=== PATIENT | female | born 1975 | race Caucasian/White ===

== ENCOUNTER → 2018-12-27 | Outpatient (CLI) | payer OTHER ==
[2018-12-27 10:42] VITALS: BP 106/72; PULSE 76; RESP 18; TEMP 97.9; BMI 46.6
--- NOTE | 2018-12-27 11:41 | P.HPOB ---
History of Present Illness H&P Date: 12/27/18 Chief Complaint: The patient is here for her routine gynecologic exam and ma mmogram. This is a 43-year-old with an LMP of 12/19/2018. The patient is here to establish with this office. She is status post tubal ligation. She thinks her last pelvic exam may have been 11 years ago. She is without gynecologic complaints and states her menses are regular every month. Review of Systems She has lost about 17 pounds since she moved into [facility]. She has done this with healthier eating. Respiratory: she does get short of breath with exertion with a history of asthma . She denies cardiac or G.I. problems. Past Medical History Past Medical History: Asthma, Diabetes Mellitus, Hyperlipidemia Additional Past Medical History / Comment(s): Enlarged heart. Borderline diabetes. Chronic back and knee problems. 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 History of Any Multi-Drug Resistant Organisms: None Reported Past Surgical History: Bladder Surgery, Hernia Repair, Tubal Ligation Additional Past Surgical History / Comment(s): Abdominal hernia repair as an . Bladder surgery for incontinence in 2018. Past Psychological History: Bipolar, Depression Additional Psychological History / Comment(s): History of cognitive impairment. Smoking Status: Former smoker Additional Past Alcohol Use History / Comment(s): Quit smoking July 2018. Past Drug Use History: None Reported Additional History: She is single. She is not seeing anybody at this time and has not been sexually active for several years. 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 She lives at [facility]. - Past Family History Father Family Medical History: Asthma, Seizure Disorder Mother Family Medical History: Unable to Obtain Aunt Family Medical History: Cancer Additional Family Medical History / Comment(s): Brain cancer. Medications and Allergies Home Medications Medication Instructions Recorded Confirmed Type Albuterol Inhaler [Ventolin Hfa 1 - 2 puff INHALATION RT-Q6H PRN 12/27/18 12/27/18 History Inhaler] Atenolol 25 mg PO HS 12/27/18 12/27/18 History Cholecalciferol [Vitamin D3 (25 1,000 unit PO DAILY 12/27/18 12/27/18 History Mcg = 1000 Iu)] Citalopram Hydrobromide [CeleXA] 40 mg PO HS 12/27/18 12/27/18 History HYDROcodone/APAP 5-325MG [[place] 2 tab PO Q6HR PRN 12/27/18 12/27/18 History 5-325] Meloxicam 15 mg PO DAILY 12/27/18 12/27/18 History Montelukast [Singulair] 10 mg PO HS 12/27/18 12/27/18 History Pravastatin Sodium [Pravachol] 20 mg PO HS 12/27/18 12/27/18 History Trospium Chloride [Sanctura XR] 60 mg PO DAILY 12/27/18 12/27/18 History Ziprasidone [Geodon] 80 mg PO BID 12/27/18 12/27/18 History Allergies Allergy/AdvReac Type Severity Reaction Status Date / Time No Known Allergies Allergy Unverified 12/27/18 10:42 Exam Vital Signs Temp Pulse Resp BP Pulse Ox 12/27/18 10:33 97.9 F 76 18 106/72 96 Intake and Output 12/26/18 12/27/18 12/27/18 22:59 06:59 14:59 Other: Weight 115.666 kg Height 5'2", weight 255 pounds, BMI 46.6. This is a well-developed well-nourished obese white female who is alert and oriented times 3 in no acute distress. The patient is cognitively slow, but is able to answer questions appropriately and seems to be a good historian. HEENT: Within normal limits. NECK: Supple without mass or thyromegaly. CHEST AND LUNGS: Clear to auscultation. HEART: Regular rate and rhythm. BREASTS: Are without mass or discharge. AXILLARY EXAM: Negative for adenopathy. BACK: Negative for CVA tenderness. ABDOMEN: Soft, obese, nontender, without palpable masses. PELVIC EXAM: Normal external genitalia. Cervix and vagina appear normal. There is no unusual discharge. There is no evidence of prolapse. The uterus is midposition, nongravid size and nontender. There are no palpable adnexal masses or tenderness. Bimanual examination is somewhat limited secondary to her size. RECTAL EXAM: negative for mass or tenderness and is negative for occult blood. EXTREMITIES: Nontender. IMPRESSION: 1. 43-year-old female with normal gynecologic exam. 2. Status post tubal ligation. PLAN: 1. Pap smear was performed. 2. Self breast awareness was discussed with the patient. 3. Screening mammogram will be done today. 4. Osteoporosis prevention was discussed. I have stressed the importance of adequate calcium, vitamin D and regular exercise. Recommended amounts of calcium and vitamin D were also discussed. 5. She was advised to return in one year for her annual well woman exam.
--- NOTE | 2018-12-28 15:01 | MM ---
Reason for exam: screening (asymptomatic). Last mammogram was performed 6 years and 4 months ago. MG 3D Screening Mammo W/Cad Bilateral CC and MLO view(s) were taken. Prior study comparison: August 12, 2012, bilateral digital screening mammo w/CAD. There are scattered fibroglandular densities. There is a 3 mm mass in the upper outer quadrant of the right breast 9.5-10 cm from the nipple. No suspicious left breast abnormality. ASSESSMENT: Incomplete: need additional imaging evaluation, BI-RAD 0 RECOMMENDATION: Special view mammogram of the right breast. [facility] will attempt to contact patient to return for supplemental views .
== END | disposition home or self-care (01) ==
LOC: WWCWWP 10:12
PROVIDERS: ATTEND Obstetrics & Gynecology
DX: Z12.31 Encounter for screening mammogram for malignant neoplasm of breast (principal)
CPT/HCPCS: 77063; 77067

== ENCOUNTER → 2019-02-06 | Outpatient (CLI) | payer OTHER ==
--- NOTE | 2019-02-06 14:48 | MM ---
Reason for exam: additional evaluation requested from abnormal screening. Last mammogram was performed 1 month ago. History: Took hormonal contraceptives beginning at age 16. Physical Findings: Nurse did not find any significant physical abnormalities on exam. MG 3D Work Up W/Cad RT Spot compression CC, spot compression MLO, and LM view(s) were taken of the right breast. Prior study comparison: December 27, 2018, bilateral MG 3d screening mammo w/cad. August 12, 2012, bilateral digital screening mammo w/CAD. No distinct lesion persits at area of concern on 12/27/18 mammogram. These results were verbally communicated with the patient and result sheet given to the patient on 02/06/19. ASSESSMENT: Negative, BI-RAD 1 RECOMMENDATION: Return to routine screening mammogram schedule for both breasts.
== END | disposition home or self-care (01) ==
LOC: RADMAMWWP 13:37
PROVIDERS: ATTEND Obstetrics & Gynecology
DX: R92.8 Other abnormal and inconclusive findings on diagnostic imaging of breast (principal)
CPT/HCPCS: 77065; G0279; 77061

== ENCOUNTER → 2019-12-13 | Day surgery (SDC) | payer MEDICARE, OTHER ==
[2019-12-12 09:30] VITALS: BMI 47.5
[~2019-12-13] MED LIST: ACETAMINOPHEN TAB 500 MG TAB ONE; ACETAMINOPHEN TAB 500 MG TAB PO ONE; BUPIVACAIN-EPI 0.25%-1:200,000 30 ML VIAL SQ ONE; DEXAMETHASONE SOD PHOSPHATE 10 MG/ML 1 ML VIAL IV ONE; GLYCOPYRROLATE 0.2 MG/ML 2 ML VIAL ONE; HEPARIN SODIUM,PORCINE 5,000 UNIT/ML 1 ML VIAL ONE; HEPARIN SODIUM,PORCINE 5,000 UNIT/ML 1 ML VIAL SQ ONE; HYDROcodone/APAP 5-325MG 1 EACH TAB ONE; HYDROcodone/APAP 5-325MG 1 EACH TAB PO ONE; KETAMINE 10 MG/ML 20 ML VIAL ONE; KETOROLAC 30 MG/ML 1 ML VIAL ONE; LACTATED RINGERS 1,000 ML IV SCH; LIDOCAINE 1% (10MG/ML) FOR IV START INTRADERMA PRN; LIDOCAINE 1% INJ 10MG/ML (20 ML MDV) ONE; MIDAZOLAM 2 MG/2 ML VIAL IV PRN; MIDAZOLAM 2 MG/2 ML VIAL ONE; NEOSTIGMINE 1 MG/ML 10 ML VIAL ONE; ONDANSETRON 4 MG/2 ML VIAL IVP ONE; ONDANSETRON 4 MG/2 ML VIAL ONE; PROPOFOL 10 MG/ML 20 ML VIAL IV ONE; ROCURONIUM 10 MG/ML (5 ML VIAL) IV ONE; SUCCINYLCHOLINE CHLORIDE 100 MG/5 ML SYR IV ONE; fentaNYL (PF) 50 MCG/ML 2 ML AMP IVP PRN; fentaNYL (PF) 50 MCG/ML 2 ML AMP ONE
[2019-12-13 08:28] VITALS: TEMP 97.5
[2019-12-13 08:33] LABS: Glucose,Whole Blood 96 mg/dL (75-99)
[2019-12-13 08:38] LABS: Basophils % (A) 0 %; Eosinophils # (A) 0.4 k/uL (0-0.7); Eosinophils % (A) 4 %; HCT 41.2 % (34.0-46.0); HGB 13.5 gm/dL (11.4-16.0); Lymphocytes # (A) 2.3 k/uL (1.0-4.8); Lymphocytes % (A) 22 %; MCH 29.8 pg (25.0-35.0); MCHC 32.8 g/dL (31.0-37.0); MCV 90.9 fL (80.0-100.0); Mean Platelet Volume 7.7; Monocytes # (A) 0.6 k/uL (0-1.0); Monocytes % (A) 5 %; Neutrophils % (A) 67 %; Platelet Count 372 k/uL (150-450); RBC 4.53 m/uL (3.80-5.40); RDW 13.8 % (11.5-15.5); WBC 10.5 k/uL (3.8-10.6)
--- NOTE | 2019-12-13 09:04 | P.GSHP ---
History of Present Illness H&P Date: 12/13/19 Chief Complaint: Incarcerated umbilical hernia This a 44-year-old female with complaints of umbilical pain. Patient seen Rachel of incarcerated we'll hernia. She presents today for laparoscopic robotic- assisted repair. Past Medical History Past Medical History: Asthma, Hyperlipidemia, Hypertension Additional Past Medical History / Comment(s): umbilical hernia,Enlarged heart. Borderline diabetes-. Chronic back and knee problems. History of Any Multi-Drug Resistant Organisms: None Reported Past Surgical History: Bladder Surgery, Hernia Repair, Tubal Ligation Additional Past Surgical History / Comment(s): Abdominal hernia repair as an . Bladder surgery for incontinence in 2018. Past Anesthesia/Blood Transfusion Reactions: No Reported Reaction Additional Past Anesthesia/Blood Transfusion Reaction / Comment(s): unable to confirm family hx w/ Marni caregiver at residential and unknown blood transfusion hx Smoking Status: Former smoker - Past Family History Father Family Medical History: Asthma, Seizure Disorder Additional Family Medical History / Comment(s): unable to confirm family hx w/ Marni caregiver at residential Mother Family Medical History: Unable to Obtain Additional Family Medical History / Comment(s): unable to confirm family hx w/ Marni caregiver at residential Aunt Family Medical History: Cancer Additional Family Medical History / Comment(s): Brain cancer. unable to confirm family hx w/ Marni caregiver at residential Medications and Allergies Home Medications Medication Instructions Recorded Confirmed Type Albuterol Inhaler (Mhu) [Ventolin 1 - 2 puff INHALATION RT-Q6H PRN 12/27/18 12/13/19 History Hfa Inhaler] Atenolol 25 mg PO HS 12/27/18 12/13/19 History Cholecalciferol [Vitamin D3 (25 1,000 unit PO DAILY 12/27/18 12/13/19 History Mcg = 1000 Iu)] Citalopram Hydrobromide [CeleXA] 40 mg PO HS 12/27/18 12/13/19 History HYDROcodone/APAP 5-325MG [[place] 2 tab PO Q6HR PRN 12/27/18 12/13/19 History 5-325] Meloxicam 15 mg PO DAILY 12/27/18 12/13/19 History Montelukast [Singulair] 10 mg PO HS 12/27/18 12/13/19 History Pravastatin Sodium [Pravachol] 20 mg PO HS 12/27/18 12/13/19 History Trospium Chloride [Sanctura XR] 60 mg PO BID 12/27/18 12/13/19 History Ziprasidone [Geodon] 80 mg PO BID 12/27/18 12/13/19 History Docusate Sodium [Dok] 100 mg PO BID 12/12/19 12/13/19 History Lisinopril [Prinivil] 5 mg PO QAM 12/12/19 12/13/19 History Allergies Allergy/AdvReac Type Severity Reaction Status Date / Time No Known Allergies Allergy Verified 12/13/19 08:11 Surgical - Exam Vital Signs Temp Pulse Resp BP Pulse Ox 97.5 F L 68 16 126/77 96 12/13/19 08:26 12/13/19 08:26 12/13/19 08:26 12/13/19 08:26 12/13/19 08:26 - General well developed, well nourished, no distress - Eyes PERRL - ENT normal pinna - Neck no masses - Respiratory normal expansion - Cardiovascular Rhythm: regular - Abdomen Abdomen: soft, non tender Hernia: umbilical (3 cm incarcerated umbilical hernia) Results - Labs 12/13/19 08:30 Assessment and Plan Assessment: Impression hernia. We'll perform laparoscopic robotic-assisted repair.
[2019-12-13] MEDS: HYDROmorphone 0.5 MG/0.5 ML SYRINGE IVP PRN ×2 (10:32→10:38)
--- NOTE | 2019-12-13 10:34 | P.OP ---
Date of Procedure: 12/13/19 Preoperative Diagnosis: Incarcerated umbilical hernia Postoperative Diagnosis: Incarcerated umbilical hernia Procedure(s) Performed: Laparoscopic robotic-assisted repair of incarcerated umbilical hernia Partial omentectomy Anesthesia: TAMERA Surgeon: Byron Grimm Estimated Blood Loss (ml): 5 Pathology: other (Omentum) Condition: stable Disposition: PACU Description of Procedure: The patient was placed on the operating table in the supine position. He received general anesthesia. His abdomen was prepped and draped usual fashion. Using a 5 mm optical trocar under direct visualization the peritoneal cavity was entered in the left upper quadrant. The abdomen was then insufflated. The laparoscope was placed back into the perineal cavity. Next a 8 mm robotic trocar was placed in the left lower quadrant and a 12 mm robotic trocar was placed in the left lateral position. The original 5 mm trocar was exchanged for a 8 mm robotic trocar. The patient's placed in the left side up position. And the patient was undocked the robot. The umbilical hernia was visualized. Using hook cautery the peritoneum over the umbilical hernia was excised. Incarcerated omentum was then dissected free and transected with the hook cautery. The specimens of pathology. The fascial opening was repaired using 0V LOC suture. Next a piece of 11 cm round ventral light ST mesh was placed into the. Cavity and secured with 2 OV lock suture. The patient was undocked the robot. The needles were retrieved. The fascia of the 12 mm trocar site was closed with 0 Ethibond suture. Skin was closed interrupted 3-0 Monocryl suture. Dermabond dressings was applied. Patient top procedure well and was sent to recovery room stable condition.
[2019-12-13 13:36] VITALS: BP 153/72; PULSE 82; RESP 18
== END ==
LOC: OR 07:37
PROVIDERS: ATTEND Surgery
DX: K42.0 Umbilical hernia with obstruction, without gangrene (principal); I10 Essential (primary) hypertension; E78.5 Hyperlipidemia, unspecified; J45.909 Unspecified asthma, uncomplicated; E11.9 Type 2 diabetes mellitus without complications; E66.01 Morbid (severe) obesity due to excess calories; Z98.890 Other specified postprocedural states; Z79.899 Other long term (current) drug therapy; Z98.51 Tubal ligation status; Z87.891 Personal history of nicotine dependence; Z82.0 Family history of epilepsy and other diseases of the nervous system; Z82.5 Family history of asthma and other chronic lower respiratory diseases; Z80.8 Family history of malignant neoplasm of other organs or systems; Z68.42 Body mass index [BMI] 45.0-49.9, adult
CPT/HCPCS: 81025; 88305; 85025; 49653; C1781; J2250; J1644; J1100; J2710; J2405; J2001; J3010; J1885; J0330; J2704; J1170

== ENCOUNTER → 2019-12-29 | Outpatient (CLI) | payer MEDICARE, OTHER ==
--- NOTE | 2020-01-01 10:32 | MM ---
Reason for exam: screening (asymptomatic). Last mammogram was performed 11 months ago. History: Took hormonal contraceptives beginning at age 16. Physical Findings: A clinical breast exam by your physician is recommended on an annual basis and results should be correlated with mammographic findings. MG Screening Mammo w CAD Bilateral CC and MLO view(s) were taken. Prior study comparison: February 06, 2019, right breast MG 3d work up w/cad RT. December 27, 2018, bilateral MG 3d screening mammo w/cad. There are scattered fibroglandular densities. There is no discrete abnormality. No significant changes when compared with prior studies. ASSESSMENT: Negative, BI-RAD 1 RECOMMENDATION: Routine screening mammogram of both breasts in 1 year.
== END | disposition home or self-care (01) ==
LOC: RADMAMWWP 12:59
PROVIDERS: ATTEND General Practice
DX: Z12.31 Encounter for screening mammogram for malignant neoplasm of breast (principal)
CPT/HCPCS: 77067

== ENCOUNTER → 2020-01-02 | Outpatient (CLI) | payer MEDICARE, OTHER ==
[2020-01-02 11:36] VITALS: BP 121/88; PULSE 69; RESP 18; TEMP 97.8
--- NOTE | 2020-01-02 12:26 | P.HPOB ---
History of Present Illness H&P Date: 01/02/20 Chief Complaint: The patient is here for her routine gynecologic exam. This is a 44-year-old 012 with an LMP of 01/02/2020. The patient is status post tubal ligation. She states her menstrual periods no longer start on the first of the month like they use to, but are about every 4-5 weeks. She states they're typically lasting 5 days. She states she has not been sexually active. She was wondering if she should take control pills to make the menstrual periods more regular. She is otherwise without complaints. Review of Systems The patient has lost 11 pounds over the last year. She denies respiratory, cardiac, or G.I. problems. Past Medical History Past Medical History: Asthma, Hyperlipidemia, Hypertension Additional Past Medical History / Comment(s): Enlarged heart. Borderline diabetes-. Chronic back and knee problems. 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 History of Any Multi-Drug Resistant Organisms: None Reported Past Surgical History: Bladder Surgery, Hernia Repair, Tubal Ligation Additional Past Surgical History / Comment(s): Abdominal hernia repair as an in and in 2019. Bladder surgery for incontinence in 2017. Past Anesthesia/Blood Transfusion Reactions: No Reported Reaction Additional Past Anesthesia/Blood Transfusion Reaction / Comment(s): unable to confirm family hx w/ Marni caregiver at [facility] and unknown blood transfusion hx Past Psychological History: Bipolar, Depression Additional Psychological History / Comment(s): History of cognitive impairment- pt is own guardian. Smoking Status: Former smoker Past Alcohol Use History: None Reported Additional Past Alcohol Use History / Comment(s): Quit smoking July 2018. Past Drug Use History: None Reported Additional History: She is single. She is not seeing anybody at this time and has not been sexually active for several years. She lives at [facility] and works at [employer]. - Past Family History Father Family Medical History: Asthma, Seizure Disorder Additional Family Medical History / Comment(s): unable to confirm family hx w/ Marni caregiver at [facility] Mother Family Medical History: Unable to Obtain Additional Family Medical History / Comment(s): unable to confirm family hx w/ Marni caregiver at [facility] Aunt Family Medical History: Cancer Additional Family Medical History / Comment(s): Brain cancer. unable to confirm family hx w/ Marni caregiver at [facility] Medications and Allergies Home Medications Medication Instructions Recorded Confirmed Type Albuterol Inhaler (Mhu) [Ventolin 1 - 2 puff INHALATION RT-Q6H PRN 12/27/18 01/02/20 History Hfa Inhaler] Cholecalciferol [Vitamin D3 (25 1,000 unit PO DAILY 12/27/18 01/02/20 History Mcg = 1000 Iu)] Citalopram Hydrobromide [CeleXA] 40 mg PO HS 12/27/18 01/02/20 History HYDROcodone/APAP 5-325MG [[place] 2 tab PO Q6HR PRN 12/27/18 01/02/20 History 5-325] Meloxicam 15 mg PO DAILY 12/27/18 01/02/20 History Montelukast [Singulair] 10 mg PO HS 12/27/18 01/02/20 History Pravastatin Sodium [Pravachol] 20 mg PO HS 12/27/18 01/02/20 History Trospium Chloride [Sanctura XR] 20 mg PO BID 12/27/18 01/02/20 History Ziprasidone [Geodon] 80 mg PO BID 12/27/18 01/02/20 History atenoloL [Atenolol] 25 mg PO HS 12/27/18 01/02/20 History Docusate Sodium [Dok] 100 mg PO BID 12/12/19 01/02/20 History lisinopriL [Prinivil] 5 mg PO QAM 12/12/19 01/02/20 History Allergies Allergy/AdvReac Type Severity Reaction Status Date / Time No Known Allergies Allergy Verified 01/02/20 11:29 Exam Vital Signs Temp Pulse Resp BP Pulse Ox 01/02/20 11:29 97.8 F 69 18 121/88 100 Intake and Output 01/01/20 01/02/20 01/02/20 22:59 06:59 14:59 Other: Weight 110.677 kg Height 5 feet 1 inch, weight 244 pounds, BMI 46.1. This is a well-developed well-nourished heavyset white female who is alert and oriented times 3 in no acute distress. The patient is somewhat slow with her responses but seems to answer questions appropriately and seems to be a good historian. HEENT: Within normal limits. NECK: Supple without mass or thyromegaly. CHEST AND LUNGS: Clear to auscultation. HEART: Regular rate and rhythm. BREASTS: Are without mass or discharge. AXILLARY EXAM: Negative for adenopathy. BACK: Negative for CVA tenderness. ABDOMEN: Soft, nontender, without palpable masses. PELVIC EXAM: Normal external genitalia. Cervix and vagina appear normal. There is no unusual discharge. There is no evidence of prolapse. The uterus is midposition, nongravid size and nontender. There are no palpable adnexal masses or tenderness. RECTAL EXAM: negative for mass or tenderness and is negative for occult blood. EXTREMITIES: Nontender. IMPRESSION: 1. 44-year-old premenopausal female with normal gynecologic exam who is status post tubal ligation. 2. History of cognitive impairment. 3. Mild menstrual changes with menses every 4-5 weeks. PLAN: 1. Pap smear was deferred since she had a normal one on 12/27/2018. 2. Self breast awareness was discussed with the patient. 3. Screening mammogram was done on 12/29/2019 and was benign. 4. The patient will keep a menstrual calendar. I have tried to reassure her that her menstrual periods not starting at the same time each month can be normal. Her menstrual periods being every 4-5 weeks is within the normal range. She was instructed to make an appointment if she is having worsening menstrual irregularity or problems. I do not believe she is a good candidate for control pills and she is not in need of control at this time. 5. She was advised to return in one year for her annual well woman exam.
== END | disposition home or self-care (01) ==
LOC: WWCWWP 11:04
PROVIDERS: ATTEND Obstetrics & Gynecology
DX: Z53.9 Procedure and treatment not carried out, unspecified reason (principal)

== ENCOUNTER → 2020-04-15 | Outpatient (CLI) | payer MEDICARE, OTHER | END | disposition home or self-care (01) | LOC: LABWHC1 11:25 | PROVIDERS: ATTEND General Practice | DX: Z20.828 Contact with and (suspected) exposure to other viral communicable diseases (principal); R05 Cough | CPT/HCPCS: U0003; C9803 ==

== ENCOUNTER 2021-02-01 17:22 | Emergency (ER) | payer MEDICARE, OTHER ==
--- NOTE | 2021-02-01 17:53 | ED ---
General Adult HPI - General Chief complaint: Extremity Injury, Lower Stated complaint: L Foot Pain Time Seen by Provider: 02/01/21 17:28 Source: patient, EMS, RN notes reviewed, old records reviewed Mode of arrival: EMS Limitations: no limitations - History of Present Illness Initial comments: 45-year-old female presents with left foot and ankle injury. Patient had either had her foot stepped on or had tripped resulting in some foot and ankle pain on the left. There is no head neck or back trauma. No loss conscious. No other extremity injury. This occurred while the patient was at home when she was transported by EMS. EMS reported that the patient's father had accidentally stepped on her foot - Related Data Home Medications Medication Instructions Recorded Confirmed Albuterol Inhaler (Mhu) [Ventolin 1 - 2 puff INHALATION RT-Q6H PRN 12/27/18 01/02/20 Hfa Inhaler] Cholecalciferol [Vitamin D3 (25 1,000 unit PO DAILY 12/27/18 01/02/20 Mcg = 1000 Iu)] Citalopram Hydrobromide [CeleXA] 40 mg PO HS 12/27/18 01/02/20 HYDROcodone/APAP 5-325MG [[place] 2 tab PO Q6HR PRN 12/27/18 01/02/20 5-325] Meloxicam 15 mg PO DAILY 12/27/18 01/02/20 Montelukast [Singulair] 10 mg PO HS 12/27/18 01/02/20 Pravastatin Sodium [Pravachol] 20 mg PO HS 12/27/18 01/02/20 Trospium Chloride [Sanctura XR] 20 mg PO BID 12/27/18 01/02/20 Ziprasidone [Geodon] 80 mg PO BID 12/27/18 01/02/20 atenoloL 25 mg PO HS 12/27/18 01/02/20 Docusate Sodium [Dok] 100 mg PO BID 12/12/19 01/02/20 lisinopriL [Prinivil] 5 mg PO QAM 12/12/19 01/02/20 Allergies Allergy/AdvReac Type Severity Reaction Status Date / Time No Known Allergies Allergy Verified 01/02/20 11:29 Review of Systems ROS Statement: Those systems with pertinent positive or pertinent negative responses have been documented in the HPI. ROS Other: All systems not noted in ROS Statement are negative. Past Medical History Past Medical History: Asthma, Hyperlipidemia, Hypertension Additional Past Medical History / Comment(s): Enlarged heart. Borderline diabetes-. Chronic back and knee problems. 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 History of Any Multi-Drug Resistant Organisms: None Reported Past Surgical History: Bladder Surgery, Hernia Repair, Tubal Ligation Additional Past Surgical History / Comment(s): Abdominal hernia repair as an and in 2020. Bladder surgery for incontinence in 2018. Past Anesthesia/Blood Transfusion Reactions: No Reported Reaction Additional Past Anesthesia/Blood Transfusion Reaction / Comment(s): unable to confirm family hx w/ M[facility]i caregiver at [facility] and unknown blood transfusion hx Past Psychological History: Bipolar, Depression Smoking Status: Former smoker Past Alcohol Use History: None Reported Past Drug Use History: None Reported - Past Family History Father Family Medical History: Asthma, Seizure Disorder Additional Family Medical History / Comment(s): unable to confirm family hx w/ Marni caregiver at [facility] Mother Family Medical History: Unable to Obtain Additional Family Medical History / Comment(s): unable to confirm family hx w/ Marni caregiver at [facility] Aunt Family Medical History: Cancer Additional Family Medical History / Comment(s): Brain cancer. unable to confirm family hx w/ Marni caregiver at [facility] General Exam Limitations: no limitations General appearance: alert, in no apparent distress Head exam: Present: atraumatic, normocephalic Eye exam: Present: normal appearance, PERRL ENT exam: Present: normal exam Neck exam: Present: normal inspection. Absent: tenderness, meningismus Respiratory exam: Present: normal lung sounds bilaterally. Absent: respiratory distress, wheezes Cardiovascular Exam: Present: regular rate, normal rhythm GI/Abdominal exam: Present: soft. Absent: distended, tenderness, guarding Extremities exam: Present: normal inspection, tenderness (Tenderness on the dorsum of the left foot, no soft tissue swelling, no ecchymosis, no deformity.), normal capillary refill. Absent: pedal edema, joint swelling Neurological exam: Present: alert Psychiatric exam: Present: normal affect, normal mood Skin exam: Present: warm, dry, intact Course Vital Signs 02/01/21 17:31 Temperature 97.8 F Pulse Rate 85 Respiratory 20 Rate Blood Pressure 146/63 O2 Sat by Pulse 98 Oximetry Procedures - Orthopedic Splinting/Casting Injury #1 Side: left Lower Extremity Injury Location: short leg, foot Lower Extremity Immobilizer: posterior splint, synthetic pre-padded splint Other Orthopedic Equipment: crutches Medical Decision Making - Medical Decision Making 45-year-old female with left foot injury. X-ray showing a nondisplaced midshaft fracture of the fifth metacarpal. Patient placed in posterior splint, she is instructed to be nonweightbearing. She is given a prescription for crutches. She will follow-up with orthopedics. Disposition Clinical Impression: Fracture, metacarpal shaft Disposition: HOME SELF-CARE Instructions (If sedation given, give patient instructions): Foot Fracture in Adults (ED) Is patient prescribed a controlled substance at d/c from ED?: No Referrals: Casey Elizabeth MD [Primary Care Provider] - 1-2 days Elton Fitzpatrick MD [Medical Doctor] - 1-2 days Time of Disposition: 18:50
--- NOTE | 2021-02-01 18:11 | XR ---
EXAMINATION TYPE: XR ankle complete LT DATE OF EXAM: 02/01/2021 COMPARISON: NONE HISTORY: Fall TECHNIQUE: 3 views FINDINGS: There is plantar calcaneal spurring. I see no fracture nor dislocation. Ankle mortise is an atomic. Ankle joint space is normal. There is some calcification lateral to the Hindfoot consistent with old ligamentous injury. IMPRESSION: Calcaneal spurring. No fracture seen. Minimal soft tissue swelling around the ankle. Late ral soft tissue calcification consistent with old injury.
--- NOTE | 2021-02-01 18:13 | XR ---
EXAMINATION TYPE: XR foot complete LT DATE OF EXAM: 02/01/2021 COMPARISON: NONE HISTORY: Foot pain TECHNIQUE: 3 views FINDINGS: Metatarsals show nondisplaced fracture across the mid shaft of the fifth metatarsal. The to es appear intact. There is plantar calcaneal spurring. There is soft tissue swelling of the forefoot. There is some oval-shaped calcification lateral to the calcaneus consistent with old ligamentous inj ury. IMPRESSION: Acute nondisplaced fracture of the mid shaft of the fifth metatarsal. Soft tissue swellin g and old injury. Calcaneal spurring.
[2021-02-01 19:18] VITALS: BP 138/84; PULSE 82; RESP 16; TEMP 98.1
== END 2021-02-01 19:16 | disposition home or self-care (01) ==
LOC: EC 17:22
DX: S92.355A Nondisplaced fracture of fifth metatarsal bone, left foot, initial encounter for closed fracture (principal); E78.5 Hyperlipidemia, unspecified; I10 Essential (primary) hypertension; J45.909 Unspecified asthma, uncomplicated; Z87.891 Personal history of nicotine dependence; Z79.899 Other long term (current) drug therapy; W18.40XA Slipping, tripping and stumbling without falling, unspecified, initial encounter; Y92.009 Unspecified place in unspecified non-institutional (private) residence as the place of occurrence of the external cause
CPT/HCPCS: 29515; 99283

== ENCOUNTER → 2021-05-20 | Outpatient (CLI) | payer MEDICARE, OTHER ==
--- NOTE | 2021-05-20 14:12 | CT ---
EXAMINATION TYPE: CT foot LT wo con DATE OF EXAM: 05/20/2021 COMPARISON: Left foot and ankle x-rays February 01, 2021 HISTORY: Displaced fracture of fifth metatarsal, pain, morbid obesity. CT DLP: 175.1 mGycm Automated exposure control for dose reduction was used. FINDINGS: Osseous structures are demineralized. 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 No ossific fusion is present. No new acute or subacute fractures. Some ossification along the peroneal tendons inferior to the lateral malleolus sagittal image 8 are n oted. Similar smaller type ossifications along the deep anterior aspect of the posterior tibial tendo n at level of the anterior talus axial image 30. No significant soft tissue swelling. Suspect small deep subcutaneous lipoma medial aspect calcaneocub oid articulation axial image 40 measuring 3.1 x 1.4 cm. IMPRESSION: As above.
== END | disposition home or self-care (01) ==
LOC: RADCTMAIN 13:35
PROVIDERS: ATTEND Orthopaedic Surgery
DX: M25.572 Pain in left ankle and joints of left foot (principal)

== ENCOUNTER 2021-07-04 13:11 | Observation (INO) | payer MEDICARE, OTHER ==
[2021-07-04] MEDS ORDERED: ONDANSETRON 4 MG/2 ML VIAL IVP STA (13:26)
[2021-07-04] MEDS ORDERED: FAMOTIDINE 20 MG/2 ML VIAL IV STA (13:26)
[2021-07-04] MEDS ORDERED: SODIUM CHLORIDE 0.9% 500 ML 500 ML IV STA (13:26)
--- NOTE | 2021-07-04 13:36 | ED ---
General Adult HPI - General Chief complaint: Nausea/Vomiting/Diarrhea Stated complaint: Nausea Time Seen by Provider: 07/04/21 13:13 Source: patient, EMS, RN notes reviewed Mode of arrival: EMS Limitations: no limitations - History of Present Illness Initial comments: Patient is a pleasant 46-year-old female presenting to emergency Department with complaints of nausea. Patient states she did vomit 3 times. Patient has continued nausea. Patient states this is not a chronic problem. Patient states there is some discomfort of the abdomen. No diarrhea. No fevers. - Related Data Home Medications Medication Instructions Recorded Confirmed Albuterol Inhaler (Mhu) [Ventolin 1 - 2 puff INHALATION RT-Q6H PRN 12/27/18 01/02/20 Hfa Inhaler] Cholecalciferol [Vitamin D3 (25 1,000 unit PO DAILY 12/27/18 01/02/20 Mcg = 1000 Iu)] Citalopram Hydrobromide [CeleXA] 40 mg PO HS 12/27/18 01/02/20 HYDROcodone/APAP 5-325MG [[place] 2 tab PO Q6HR PRN 12/27/18 01/02/20 5-325] Meloxicam 15 mg PO DAILY 12/27/18 01/02/20 Montelukast [Singulair] 10 mg PO HS 12/27/18 01/02/20 Pravastatin Sodium [Pravachol] 20 mg PO HS 12/27/18 01/02/20 Trospium Chloride [Sanctura XR] 20 mg PO BID 12/27/18 01/02/20 Ziprasidone [Geodon] 80 mg PO BID 12/27/18 01/02/20 atenoloL 25 mg PO HS 12/27/18 01/02/20 Docusate Sodium [Dok] 100 mg PO BID 12/12/19 01/02/20 lisinopriL [Prinivil] 5 mg PO QAM 12/12/19 01/02/20 Allergies Allergy/AdvReac Type Severity Reaction Status Date / Time No Known Allergies Allergy Verified 07/04/21 13:21 Review of Systems ROS Statement: Those systems with pertinent positive or pertinent negative responses have been documented in the HPI. ROS Other: All systems not noted in ROS Statement are negative. Constitutional: Denies: fever, chills Eyes: Denies: eye pain ENT: Denies: ear pain Respiratory: Denies: cough Cardiovascular: Denies: chest pain Endocrine: Denies: fatigue Gastrointestinal: Reports: nausea, vomiting. Denies: diarrhea Genitourinary: Denies: dysuria Musculoskeletal: Denies: back pain Skin: Denies: rash Neurological: Denies: weakness Past Medical History Past Medical History: Asthma, Hyperlipidemia, Hypertension Additional Past Medical History / Comment(s): Enlarged heart. Borderline diabetes-. Chronic back and knee problems. 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 History of Any Multi-Drug Resistant Organisms: None Reported Past Surgical History: Bladder Surgery, Hernia Repair, Tubal Ligation Additional Past Surgical History / Comment(s): Abdominal hernia repair as an and in 2020. Bladder surgery for incontinence in 2018. Past Anesthesia/Blood Transfusion Reactions: No Reported Reaction Additional Past Anesthesia/Blood Transfusion Reaction / Comment(s): unable to confirm family hx w/ M[facility] caregiver at halfway and unknown blood transfusion hx Past Psychological History: Bipolar, Depression Smoking Status: Former smoker Past Alcohol Use History: None Reported Past Drug Use History: None Reported - Past Family History Father Family Medical History: Asthma, Seizure Disorder Additional Family Medical History / Comment(s): unable to confirm family hx w/ Marni caregiver at halfway Mother Family Medical History: Unable to Obtain Additional Family Medical History / Comment(s): unable to confirm family hx w/ Marni caregiver at halfway Aunt Family Medical History: Cancer Additional Family Medical History / Comment(s): Brain cancer. unable to confirm family hx w/ Marni caregiver at halfway General Exam Limitations: no limitations General appearance: alert, in no apparent distress Head exam: Present: normocephalic Eye exam: Present: normal appearance Neck exam: Present: normal inspection Respiratory exam: Present: normal lung sounds bilaterally Cardiovascular Exam: Present: regular rate, normal rhythm Expanded Peripheral pulses: 2+: Dorsalis Pedis (R), Dorsalis Pedis (L) GI/Abdominal exam: Present: soft, normal bowel sounds. Absent: distended, tenderness, guarding, rebound, rigid, pulsatile mass Extremities exam: Present: normal inspection Neurological exam: Present: alert Psychiatric exam: Present: normal affect, normal mood Skin exam: Present: normal color Course Vital Signs 07/04/21 07/04/21 13:12 13:16 Temperature 98.6 F 98.0 F Pulse Rate 120 H 118 H Respiratory 20 20 Rate Blood Pressure 144/104 144/104 O2 Sat by Pulse 94 L 94 L Oximetry Medical Decision Making - Medical Decision Making Patient reevaluated and still having some abdominal discomfort and nausea. Maliha mas updated on results. Case discussed with Dr. Zaman, who will admit with surgical consult. - Lab Data Result diagrams: 07/04/21 13:37 07/04/21 13:55 Lab Results 07/04/21 07/04/21 07/04/21 Range/Units 13:37 13:37 13:55 WBC 17.5 H (3.8-10.6) k/uL RBC 4.76 (3.80-5.40) m/uL Hgb 14.0 (11.4-16.0) gm/dL Hct 43.5 (34.0-46.0) % MCV 91.3 (80.0-100.0) fL MCH 29.4 (25.0-35.0) pg MCHC 32.2 (31.0-37.0) g/dL RDW 14.8 (11.5-15.5) % Plt Count 498 H (150-450) k/uL MPV 7.7 Neutrophils % 79 % Lymphocytes % 12 % Monocytes % 6 % Eosinophils % 2 % Basophils % 0 % Neutrophils # 13.8 H (1.3-7.7) k/uL Lymphocytes # 2.1 (1.0-4.8) k/uL Monocytes # 1.0 (0-1.0) k/uL Eosinophils # 0.4 (0-0.7) k/uL Basophils # 0.1 (0-0.2) k/uL PT 10.2 (9.0-12.0) sec INR 0.9 (<1.2) APTT 25.1 (22.0-30.0) sec Sodium 141 (137-145) mmol/L Potassium 4.3 (3.5-5.1) mmol/L Chloride 106 (98-107) mmol/L Carbon Dioxide 21 L (22-30) mmol/L Anion Gap 14 mmol/L BUN 21 H (7-17) mg/dL Creatinine 0.72 (0.52-1.04) mg/dL Est GFR (CKD-EPI)AfAm >90 (>60 ml/min/1.73 sqM) Est GFR (CKD-EPI)NonAf >90 (>60 ml/min/1.73 sqM) Glucose 129 H (74-99) mg/dL Calcium 10.2 (8.4-10.2) mg/dL Total Bilirubin 0.5 (0.2-1.3) mg/dL AST 74 H (14-36) U/L ALT 42 H (4-34) U/L Alkaline Phosphatase 120 (38-126) U/L Total Protein 8.6 H (6.3-8.2) g/dL Albumin 4.9 (3.5-5.0) g/dL Amylase 45 (30-110) U/L Lipase 64 (23-300) U/L Urine Color Urine Appearance (Clear) Urine pH (5.0-8.0) Ur Specific [place] (1.001-1.035) Urine Protein (Negative) Urine Glucose (UA) (Negative) Urine Ketones (Negative) Urine Blood (Negative) Urine Nitrite (Negative) Urine Bilirubin (Negative) Urine Urobilinogen (<2.0) mg/dL Ur Leukocyte Esterase (Negative) Urine RBC (0-5) /hpf Urine WBC (0-5) /hpf Ur Squamous Epith Cells (0-4) /hpf Urine Bacteria (None) /hpf Urine Mucus (None) /hpf Urine HCG, Qual (Not Detectd) 07/04/21 07/04/21 Range/Units 14:28 14:57 WBC (3.8-10.6) k/uL RBC (3.80-5.40) m/uL Hgb (11.4-16.0) gm/dL Hct (34.0-46.0) % MCV (80.0-100.0) fL MCH (25.0-35.0) pg MCHC (31.0-37.0) g/dL RDW (11.5-15.5) % Plt Count (150-450) k/uL MPV Neutrophils % % Lymphocytes % % Monocytes % % Eosinophils % % Basophils % % Neutrophils # (1.3-7.7) k/uL Lymphocytes # (1.0-4.8) k/uL Monocytes # (0-1.0) k/uL Eosinophils # (0-0.7) k/uL Basophils # (0-0.2) k/uL PT (9.0-12.0) sec INR (<1.2) APTT (22.0-30.0) sec Sodium (137-145) mmol/L Potassium (3.5-5.1) mmol/L Chloride (98-107) mmol/L Carbon Dioxide (22-30) mmol/L Anion Gap mmol/L BUN (7-17) mg/dL Creatinine (0.52-1.04) mg/dL Est GFR (CKD-EPI)AfAm (>60 ml/min/1.73 sqM) Est GFR (CKD-EPI)NonAf (>60 ml/min/1.73 sqM) Glucose (74-99) mg/dL Calcium (8.4-10.2) mg/dL Total Bilirubin (0.2-1.3) mg/dL AST (14-36) U/L ALT (4-34) U/L Alkaline Phosphatase (38-126) U/L Total Protein (6.3-8.2) g/dL Albumin (3.5-5.0) g/dL Amylase (30-110) U/L Lipase (23-300) U/L Urine Color Yellow Urine Appearance Cloudy H (Clear) Urine pH 6.5 (5.0-8.0) Ur Specific [place] 1.030 (1.001-1.035) Urine Protein 3+ H (Negative) Urine Glucose (UA) Negative (Negative) Urine Ketones Negative (Negative) Urine Blood Small H (Negative) Urine Nitrite Negative (Negative) Urine Bilirubin Negative (Negative) Urine Urobilinogen 2.0 (<2.0) mg/dL Ur Leukocyte Esterase Large H (Negative) Urine RBC 5 (0-5) /hpf Urine WBC 61 H (0-5) /hpf Ur Squamous Epith Cells 20 H (0-4) /hpf Urine Bacteria Rare H (None) /hpf Urine Mucus Few H (None) /hpf Urine HCG, Qual Not Detected (Not Detectd) - Radiology Data Radiology results: report reviewed (Computed tomography scan abdomen and pelvis does show hepatomegaly as well as large hiatal hernia.), image reviewed (Abdom inal x-ray shows nonspecific abdomen) Disposition Clinical Impression: Vomiting, Abdominal pain Disposition: ADMITTED IP TO THIS HOSP Is patient prescribed a controlled substance at d/c from ED?: No Referrals: Casey Elizabeth MD [Primary Care Provider] - 1-2 days Decision Time: 16:31
[2021-07-04 13:48] LABS: Basophils # (A) 0.1 k/uL (0-0.2); Basophils % (A) 0 %; Eosinophils # (A) 0.4 k/uL (0-0.7); Eosinophils % (A) 2 %; HCT 43.5 % (34.0-46.0); Lymphocytes # (A) 2.1 k/uL (1.0-4.8); Lymphocytes % (A) 12 %; MCH 29.4 pg (25.0-35.0); MCHC 32.2 g/dL (31.0-37.0); MCV 91.3 fL (80.0-100.0); Mean Platelet Volume 7.7; Monocytes % (A) 6 %; Neutrophils # (A) 13.8 k/uL (1.3-7.7); Neutrophils % (A) 79 %; Platelet Count 498 k/uL (150-450); RBC 4.76 m/uL (3.80-5.40); RDW 14.8 % (11.5-15.5); WBC 17.5 k/uL (3.8-10.6)
[2021-07-04 14:15] LABS: INR 0.9 (<1.2); Prothrombin Time 10.2 sec (9.0-12.0)
[2021-07-04 14:16] LABS: Partial Thromboplastin Time 25.1 sec (22.0-30.0)
[2021-07-04 14:25] LABS: ALT 42 U/L (4-34); AST 74 U/L (14-36); African American GFR (CKD) >90 (>60 ml/min/1.73 sqM); Albumin 4.9 g/dL (3.5-5.0); Alkaline Phosphatase 120 U/L (38-126); Amylase 45 U/L (30-110); Anion Gap 14 mmol/L; Blood Urea Nitrogen 21 mg/dL (7-17); Calcium 10.2 mg/dL (8.4-10.2); Carbon Dioxide 21 mmol/L (22-30); Chloride 106 mmol/L (98-107); Glucose 129 mg/dL (74-99); Lipase 64 U/L (23-300); Non-African American GFR(CKD) >90 (>60 ml/min/1.73 sqM); Potassium 4.3 mmol/L (3.5-5.1); Sodium 141 mmol/L (137-145); Total Bilirubin 0.5 mg/dL (0.2-1.3); Total Protein 8.6 g/dL (6.3-8.2)
[2021-07-04 14:41] LABS: Appearance,Urine Cloudy (Clear); Bacteria,Urine Rare /hpf; Bilirubin,Urine Negative (Negative); Blood,Urine Small (Negative); Color,Urine Yellow; Glucose,Urine (UA) Negative (Negative); Ketones,Urine Negative (Negative); Leukocyte Esterase,Urine Large (Negative); Mucus,Urine Few /hpf; Nitrite,Urine Negative (Negative); PH, Urine 6.5 (5.0-8.0); Protein,Urine 3+ (Negative); RBC,Urine 5 /hpf (0-5); Squamous Epithelial Cell,Urine 20 /hpf (0-4); WBC,Urine 61 /hpf (0-5)
--- NOTE | 2021-07-04 14:44 | XR ---
KUB HISTORY: Vomiting. COMPARISON: None. TECHNIQUE: 3 upright views the abdomen were obtained. FINDINGS: The lung bases are clear. There is no free air beneath the hemidiaphragms. There is an air-fluid level at the GE junction consistent with a [id number] hiatal hernia. The bowel gas pattern is nonspecific. No suspicious abdominal or pelvic calcifications are seen. The osseous structures are grossly intact. IMPRESSION: 1. Nonspecific abdomen without evidence of free air impression. 2. Small to moderate hiatal hernia.
--- NOTE | 2021-07-04 15:56 | CT ---
EXAMINATION TYPE: CT abdomen pelvis w con DATE OF EXAM: 07/04/2021 COMPARISON: NONE HISTORY: 46 year-old female abdominal pain, nausea and vomiting TECHNIQUE: Contiguous axial scanning of the abdomen and pelvis following administration of 100 ml Iso roger 300 IV contrast. Delayed images through the kidneys and coronal/sagittal reconstructions perform ed. CT DLP: 2536.1 mGycm Automated exposure control for dose reduction was used. FINDINGS: Heart upper limits of normal in size without pericardial effusion. Lung bases clear without pleural e ffusion. There is a moderate-sized hiatal hernia involving approximately third of the stomach. Liver borderline enlarged at 17.8 cm. There is markedly diminished attenuation suggesting moderate to severe hepatic steatosis. Portal venous system is patent. No biliary ductal dilatation. Gallbladder, adrenal glands, kidneys, spleen, and pancreas appear within normal limits. No dilated small bowel, free fluid, or free air. No mesenteric or retroperitoneal lymphadenopathy. Br eathing motion artifact. Appendix not clearly identified. No secondary findings in the right lower quadrant to suggest acute a ppendicitis. Scattered [id number] stool particularly in the right side of the abdomen. No peric olonic inflammatory change. There may be moderate circumferential bladder wall thickening. Uterus anteverted. Both ovaries are vi sualized. Bilateral tubal ligation clips. No abnormal fluid collection in the pelvis. A few prominent but nonenlarged bilateral inguinal lymph nodes measuring up to 1.3 cm probably reactive/post inflamm atory. Bones: Moderate to advanced degenerative disc disease L5-S1. Hypertrophic facet arthropathy mid to lo wer lumbar spine. Mild degenerative disc disease lower thoracic spine. IMPRESSION: 1. BORDERLINE HEPATOMEGALY (17.8 CM) WITH MARKEDLY DIMINISHED ATTENUATION. FINDINGS COULD REPRESENT H EPATITIS OR MODERATE TO SEVERE HEPATIC STEATOSIS. CLINICALLY CORRELATE. 2. A MODERATE-SIZED HIATAL HERNIA INVOLVING APPROXIMATELY ONE THIRD OF THE STOMACH.
[2021-07-04] MEDS ORDERED: ONDANSETRON 4 MG/2 ML VIAL IVP PRN (16:31)
[2021-07-04] MEDS ORDERED: MORPHINE SULFATE 4 MG/ML SYRINGE IV PRN (16:31)
[2021-07-04] MEDS ORDERED: NALOXONE 0.4 MG/ML 1 ML VIAL IV PRN (16:31)
[2021-07-04] MEDS ORDERED: ALBUTEROL NEBULIZED 2.5 MG/3 ML INHALATION PRN (21:25)
[2021-07-04] MEDS: MONTELUKAST 10 MG TAB PO SCH (22:01)
[2021-07-04] MEDS: CITALOPRAM HYDROBROMIDE 20 MG TAB PO SCH (22:01)
[2021-07-04] MEDS: atenoloL 25 MG TAB PO SCH (22:02)
[2021-07-04] MEDS: SODIUM CHLORIDE 0.9% 1,000 ML IV SCH (22:03)
[2021-07-04] MEDS: PRAVASTATIN SODIUM 20 MG TAB PO SCH (22:08)
[2021-07-04] MEDS: ZIPRASIDONE 80 MG CAP PO SCH (22:08)
[2021-07-04] MEDS ORDERED: ACETAMINOPHEN TAB 325 MG TAB PO PRN (22:43)
[2021-07-05] MEDS: SODIUM CHLORIDE 0.9% 1,000 ML IV SCH ×3 (00:51→16:19)
[2021-07-05] MEDS ORDERED: PANTOPRAZOLE 40 MG/10 ML VIAL IV SCH (09:00)
[2021-07-05 09:17] LABS: Basophils # (A) 0.09 X 10*3/uL (0.00-0.10); Basophils % (A) 0.7 %; Eosinophils # (A) 0.27 X 10*3/uL (0.04-0.35); HCT 39.4 % (37.2-46.3); HGB 12.1 g/dL (12.0-15.0); Immature Grans, Automated 0.4 %; Lymphocytes # (A) 4.56 X 10*3/uL (0.90-5.00); Lymphocytes % (A) 32.9 %; MCH 28.4 pg (27.0-32.0); MCHC 30.7 g/dL (32.0-37.0); MCV 92.5 fL (80.0-97.0); Mean Platelet Volume 10.1 fL (9.5-12.2); Monocytes # (A) 1.25 X 10*3/uL (0.20-1.00); NRBC Per 100 WBC 0 /100 WBCS (0.0-0.0); Neutrophils # (A) 7.61 X 10*3/uL (1.80-7.70); Platelet Count 417 X 10*3/uL (140-440); RBC 4.26 X 10*6/uL (4.10-5.20); RDW 15.5 % (11.5-14.5); WBC 13.84 X 10*3/uL (4.50-10.00)
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
[2021-07-05] MEDS: MELOXICAM 7.5 MG TAB PO SCH (09:45)
[2021-07-05] MEDS: ZIPRASIDONE 80 MG CAP PO SCH ×2 (09:48→19:14)
[2021-07-05] MEDS: lisinopriL 5 MG TAB PO SCH (09:49)
[2021-07-05 11:35] LABS: African American GFR (CKD) 122.1 (60.0-200.0); Albumin 4.2 g/dL (3.8-4.9); Albumin/Globulin Ratio 1.68 (1.60-3.17); Anion Gap 13.3 mmol/L (10.00-18.00); BUN/Creat Ratio 26.43 Ratio (12.00-20.00); Blood Urea Nitrogen 18.5 mg/dL (9.0-27.0); Calcium 9.3 mg/dL (8.7-10.3); Carbon Dioxide 25.7 mmol/L (20.0-27.5); Globulin 2.5 g/dL (1.6-3.3); Non-African American GFR(CKD) 105.4 (60.0-200.0); Potassium 4.2 mmol/L (3.5-5.5); Total Bilirubin 0.3 mg/dL (0.30-1.20); Total Protein 6.7 g/dL (6.2-8.2)
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
[2021-07-05] MEDS: CITALOPRAM HYDROBROMIDE 20 MG TAB PO SCH (19:14)
[2021-07-05] MEDS: PANTOPRAZOLE 40 MG TABLET PO SCH (19:14)
[2021-07-05] MEDS: PRAVASTATIN SODIUM 20 MG TAB PO SCH (19:14)
[2021-07-05] MEDS: atenoloL 25 MG TAB PO SCH (19:14)
[2021-07-05] MEDS: MONTELUKAST 10 MG TAB PO SCH (19:15)
[2021-07-06] MEDS: SODIUM CHLORIDE 0.9% 1,000 ML IV SCH ×2 (01:52→11:07)
[2021-07-06] MEDS: MELOXICAM 7.5 MG TAB PO SCH (08:28)
[2021-07-06] MEDS: ZIPRASIDONE 80 MG CAP PO SCH (08:28)
[2021-07-06] MEDS: lisinopriL 5 MG TAB PO SCH (08:28)
[2021-07-06] MEDS: PANTOPRAZOLE 40 MG TABLET PO SCH (08:29)
--- NOTE | 2021-07-06 10:00 | P.PN ---
Subjective Progress Note Date: 07/06/21 Patient seen and examined at bedside. States abdominal pain is resolved. Tolerating full liquid diet. Denies nausea or vomiting. Objective - Vital Signs Vital signs: Vital Signs Temp 97.6 F 07/06/21 07:00 Pulse 65 07/06/21 08:00 Resp 17 07/06/21 08:00 BP 132/73 07/06/21 07:00 Pulse Ox 96 07/06/21 07:00 Intake & Output 07/05/21 07/06/21 07/06/21 18:59 06:59 18:59 Intake Total 236 118 Balance 236 118 Intake: Oral 236 118 Other: Voiding Method Toilet Toilet Toilet # Voids 3 3 # Bowel Movements 0 - Constitutional General appearance: Present: cooperative, no acute distress - Gastrointestinal Gastrointestinal Comment(s): Soft, nontender, nondistended, no rebound, guarding - Labs CBC & Chem 7: 07/05/21 05:51 07/05/21 05:51 Labs: Abnormal Lab Results - Last 24 Hours (Table) 07/05/21 Range/Units 05:51 Sodium 147 H (135-145) mmol/L BUN/Creatinine Ratio 26.43 H (12.00-20.00) Ratio AST 79 H (13-35) U/L Microbiology - Last 24 Hours (Table) 07/04/21 14:28 Urine Culture - Preliminary Urine,Voided Gram Neg Bacilli Assessment and Plan Plan: 46-year-old female with abdominal pain, nausea, vomiting that has resolved. She is tolerating a liquid diet. Advance diet as tolerated. No plan for surgical intervention. This patient appears nonsurgical at this time.
[2021-07-06 13:42] VITALS: BP 161/90; PULSE 78; RESP 19; TEMP 97.5
--- NOTE | 2021-07-06 21:53 | P.DS ---
Providers Date of admission: 07/04/21 16:31 Expected date of discharge: 07/06/21 Attending physician: Lamin Zaman Consults: 07/04/21 16:31 Consult Physician Routine Consulting Provider: Christiane Salguero Consult Reason/Comments: abp, vomiting Do you want consulting provider notified?: Yes Primary care physician: Casey Elizabeth MD Hospital Course: Chief Complaint: Nausea This is a pleasant 46-year-old patient who follows with visiting physicians Dr. Elizabeth. Chronic stable medical conditions include asthma, hyperlipidemia, hypertension, cardiomegaly, chronic back pain and knee problems, bipolar disorder. Cognitive impairment. Patient takes her own decisions. Patient has a caregiver eufemia at the troponin. Patient states that she is feeling a lot of gas coming up. And belching. She does have significant reflux symptoms. Did vomit 3 times yesterday. Feels better this morning. Denies any abdominal pain. Normally has a bowel movement every day. Had one yesterday. Denies any fever and chills. Has been having significant urinary frequency. Wants to eat some. Patient is put on significant amount of weight last 1 year. July 06: Patient doing well. Tolerating a diet. Patient concerned about weight loss and diet. Prilosec prescribed for reflux symptoms. Sent a prescription for Keflex to the pharmacy. Called patient at home and inform her. Discussion and discharge planning more than 35 minutes Past medical history to include: Asthma, hyperlipidemia, hypertension, enlarged heart, borderline diabetes, chronic back and knee problems. STDs. Bipolar. Cognitive impairment. Social history: Lives at a [facility]. Makes her own decisions. Family history: Asthma, seizure Physical examination: VITAL SIGNS: 97.5, 78, 19, 132/73, 98% GENERAL: Sitting up, comfortable. EYES: Pupils equal. Conjunctiva normal. HEENT: External appearance of nose and ears normal, oral cavity grossly normal. NECK: JVD not raised; masses not palpable. HEART: First and second heart sounds are normal; no edema. LUNGS: Respiratory rate normal; clear to auscultation. ABDOMEN: Soft, nontender, liver spleen not palpable, no masses palpable. PSYCH: [Patient is able to carry out a simple conversation. MUSCULOSKELETAL:No Clubbing/cyanosis;muscles-grossly intact INVESTIGATIONS, reviewed in the clinical context: July 05: White count 13.8 Urine culture: Proteus mirabilis White count 17.5 hemoglobin 14 platelets 498 increased neutrophils sodium 141 BUN 21 crit 0.7 to AST 74 ALT 42 UA positive for leukoesterase, WBC Urine hCG: Negative Coronavirus [PCR] called not detected Assessment and plan: -Acute UTI with cystitis. Keflex 500 mg 4 times a day: 2 more days as outpatient -Acute exacerbation of GERD resulting in vomiting.: Better Note patient is put on significant weight last 1 year. PPI -Obesity BMI 36.9 Weight loss measures -Intermittent asthma Ventolin when necessary. Singular 10 mg daily at bedtime -Early osteoarthritis in the knees and hip Meloxicam 50 mg daily -Depression Celexa 40 mg daily at bedtime -Hyperlipidemia Pravachol 20 mg daily at bedtime Essential hypertension Prinivil fibrocavitary day. Atenolol 25 mg daily at bedtime -Mild cognitive impairment Patient takes her own decisions Disposition: Home Patient Condition at Discharge: Good Plan - Discharge Summary New Discharge Prescriptions: New Omeprazole [PriLOSEC] 10 mg PO BID #60 cap Continue Ziprasidone [Geodon] 80 mg PO BID Pravastatin Sodium [Pravachol] 20 mg PO HS Montelukast [Singulair] 10 mg PO HS Citalopram Hydrobromide [CeleXA] 40 mg PO HS Meloxicam 15 mg PO DAILY atenoloL 25 mg PO HS lisinopriL [Prinivil] 5 mg PO DAILY Albuterol Inhaler [Ventolin Hfa Inhaler] 2 puff INHALATION RT-QID PRN PRN Reason: Shortness Of Breath Discharge Medication List Citalopram Hydrobromide [CeleXA] 40 mg PO HS 12/27/18 [History] Meloxicam 15 mg PO DAILY 12/27/18 [History] Montelukast [Singulair] 10 mg PO HS 12/27/18 [History] Pravastatin Sodium [Pravachol] 20 mg PO HS 12/27/18 [History] Ziprasidone [Geodon] 80 mg PO BID 12/27/18 [History] atenoloL 25 mg PO HS 12/27/18 [History] lisinopriL [Prinivil] 5 mg PO DAILY 12/12/19 [History] Albuterol Inhaler [Ventolin Hfa Inhaler] 2 puff INHALATION RT-QID PRN 07/04/21 [History] Omeprazole [PriLOSEC] 10 mg PO BID #60 cap 07/06/21 [Rx] Follow up Appointment(s)/Referral(s): Casey Elizabeth MD [Primary Care Provider] - 1-2 days Christiane Salguero DO [Doctor of Osteopathic Medicine] - 2 Weeks Patient Instructions/Handouts: Acute Abdominal Pain (DC) Discharge Disposition: HOME SELF-CARE
== END 2021-07-06 15:00 | disposition home or self-care (01) ==
LOC: EC 13:11 → 6NMEDSUR 16:31
PROVIDERS: ADMIT Hospitalist; ATTEND Hospitalist
DX: R11.2 Nausea with vomiting, unspecified (principal); N30.90 Cystitis, unspecified without hematuria; K21.9 Gastro-esophageal reflux disease without esophagitis; E66.9 Obesity, unspecified; Z68.36 Body mass index [BMI] 36.0-36.9, adult; Z71.3 Dietary counseling and surveillance; J45.20 Mild intermittent asthma, uncomplicated; M17.0 Bilateral primary osteoarthritis of knee; F31.9 Bipolar disorder, unspecified; E78.5 Hyperlipidemia, unspecified; G31.84 Mild cognitive impairment of uncertain or unknown etiology; I11.9 Hypertensive heart disease without heart failure; G89.29 Other chronic pain; Z79.1 Long term (current) use of non-steroidal anti-inflammatories (NSAID); Z79.899 Other long term (current) drug therapy; Z87.891 Personal history of nicotine dependence; Z80.8 Family history of malignant neoplasm of other organs or systems; Z82.0 Family history of epilepsy and other diseases of the nervous system; Z82.5 Family history of asthma and other chronic lower respiratory diseases
CPT/HCPCS: 99285; 96376; 96365; 96366; 96375 ×2; 36415; 94640; 80053 ×2; 82150; 83690; 85025 ×2; 85610; 85730; 81001; 81025; 87086; 87077; 87186; 87635; 74018; 74177; G0378 ×3; J2405; J0696 ×2; C9113; Q9967

== ENCOUNTER → 2022-03-04 | Outpatient (CLI) | payer MEDICARE, OTHER ==
[2022-03-04 08:54] VITALS: BP 139/83; PULSE 82; RESP 17; TEMP 97.9
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
--- NOTE | 2022-03-05 10:25 | MM ---
Reason for Exam: Screening (asymptomatic). Last mammogram was performed 2 year(s) and 3 month(s) ago. Patient History: First Full-Term at age 26. Hormonal Contraceptives, from age 16 until age 22. Risk Values: Anna 5 year model risk: 0.7%. NCI Lifetime model risk: 7.9%. Prior Study Comparison: 12/27/2018 Bilateral Screening Mammogram, [facility]. 02/06/2019 Right Diagnostic Mammogram, [facility]. 12/29/2019 Bilateral Screening Mammogram, [facility]. Tissue Density: There are scattered fibroglandular densities. Findings: Analyzed By CAD. A few scattered benign-appearing tiny round calcifications bilaterally are redemonstrated. Stable oval small circumscribed mass in the right breast posterior outer aspect. There is no suspicious new group of microcalcifications or new suspicious mass in either breast. Overall Assessment: Benign, BI-RAD 2 Management: Screening Mammogram of both breasts in 1 year. A clinical breast exam by your physician is recommended on an annual basis and results should be correlated with mammographic findings. Electronically signed and approved by: Alexys Clemons M.D.
== END | disposition home or self-care (01) ==
LOC: WWCWWP 08:33
PROVIDERS: ATTEND Obstetrics & Gynecology
DX: Z12.31 Encounter for screening mammogram for malignant neoplasm of breast (principal)
CPT/HCPCS: 77063; 77067

== ENCOUNTER → 2023-09-27 | Outpatient (CLI) | payer MEDICARE, OTHER ==
--- NOTE | 2023-09-29 14:30 | MM ---
Reason for Exam: Screening (asymptomatic). Last mammogram was performed 1 year(s) and 6 month(s) ago. Patient History: Menarche at age 14. First Full-Term at age 26. Perimenopausal. Hormonal Contraceptives, from age 16 until age 22. Risk Values: Anna 5 year model risk: 0.8%. NCI Lifetime model risk: 8.5%. Prior Study Comparison: 08/12/2012 Bilateral Screening Mammogram, [facility]. 12/27/2018 Bilateral Screening Mammogram, [facility]. 02/06/2019 Right Diagnostic Mammogram, [facility]. 12/29/2019 Bilateral Screening Mammogram, [facility]. 03/04/2022 Bilateral MG 3D screening mammo w/cad, [facility]. Tissue Density: The breasts are almost entirely fatty. Findings: Analyzed By CAD. Right breast: There is no suspicious group of microcalcifications or new suspicious mass. Left breast: There is no suspicious group of microcalcifications or new suspicious mass. Overall Assessment: Negative, BI-RAD 1 Management: Screening Mammogram of both breasts in [address] [facility] will attempt to contact patient to return for supplemental views and ultrasound if indicated. Patient should continue monthly self-breast exams. A clinical breast exam by your physician is recommended on an annual basis. This exam should not preclude additional follow-up of suspicious palpable abnormalities. Note on Anna scores and lifetime risk: 1. A Anna score greater than 3% is considered moderate risk. If this is the case, consider specialist referral to assess eligibility for a risk reducing agent. 2. If overall lifetime risk for the development of breast cancer is 20% or higher, the patient may qualify for future screening with alternating mammogram and breast MRI. Electronically signed and approved by: Norbert Solis DO
== END | disposition home or self-care (01) ==
LOC: RADMAMWWP 11:05
PROVIDERS: ATTEND General Practice
DX: Z12.31 Encounter for screening mammogram for malignant neoplasm of breast (principal)
CPT/HCPCS: 77067

== ENCOUNTER 2023-11-06 23:24 | Emergency (ER) | payer MEDICARE, OTHER ==
[2023-11-06 23:28] VITALS: TEMP 98.7
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
--- NOTE | 2023-11-07 00:27 | XR ---
EXAMINATION TYPE: XR shoulder complete LT DATE OF EXAM: 11/07/2023 CLINICAL HISTORY: Fall TECHNIQUE: Three views of the left shoulder are obtained. COMPARISON: None. FINDINGS: There is no acute fracture/dislocation evident in the left shoulder. The acromioclavicula r and glenohumeral joint spaces appear within normal limits. The visualized ribs are intact and unre markable. IMPRESSION: There is no acute fracture or dislocation in the left shoulder.
--- NOTE | 2023-11-07 00:27 | XR ---
EXAMINATION TYPE: XR knee complete LT DATE OF EXAM: 11/07/2023 CLINICAL HISTORY: Fall with pain TECHNIQUE: Three views of the left knee are obtained. COMPARISON: None. FINDINGS: There is no acute fracture/dislocation evident in left knee. Moderate tricompartment joint space loss and spurring. The overlying soft tissue appears unremarkable. IMPRESSION: There is no acute fracture or dislocation in the left knee.
--- NOTE | 2023-11-07 00:29 | CT ---
EXAMINATION TYPE: CT brain anant khan con DATE OF EXAM: 11/07/2023 COMPARISON: NONE HISTORY: Pt presents to the ED via EMS with complaints of a fall, pt has a small lac above right eye brow, no thinners, no LOC, pt has a delay, and a normally unsteady gait. Complaints of a left shoulde r and left knee pain. CT DLP: 1597.1 mGycm. Automated Exposure Control for Dose Reduction was Utilized. TECHNIQUE: CT scan of the head and cervical spine are performed without contrast. FINDINGS: There is no acute intracranial hemorrhage, mass effect, or midline shift identified. The ventricles and sulci are within normal limits in size. Meyers-white matter differentiation is maintai thuy. The calvarium is intact. Prominent soft tissue density consistent with cerumen is seen in the de ep External auditory canals bilaterally. The globes are intact and the visualized sinuses are clear. Cervical spine is visualized in its entirety from C1 through upper thoracic levels and demonstrates s atisfactory alignment without evidence of acute fracture or dislocation. Prevertebral soft tissue ap pears within normal limits. The C1-C2 articulation is within normal limits on the coronal images. Ve rtebral body heights and disc space heights are maintained. Moderate multilevel spurring in the mid t o lower cervical spine is present. Spinal canal is preserved. Third is 1.4 cm calcified right thyroid nodule image 70 IMPRESSION: 1. There is no acute fracture or dislocation evident in the cervical spine. 2. No acute intracranial hemorrhage or midline shift is seen.
--- NOTE | 2023-11-07 00:36 | XR ---
EXAMINATION TYPE: XR pelvis AP view DATE OF EXAM: 11/07/2023 CLINICAL HISTORY: Fall with pain TECHNIQUE: A single AP view of the pelvis is obtained. COMPARISON: CT abdomen and pelvis July 04, 2021. FINDINGS: There is no acute displaced fracture evident in the pelvis. Moderate narrowing of both hip joints is seen. Sacroiliac joints are symmetric and within normal limits. Pubic symphysis remains in tact. Tubal ligation clips redemonstrated over the bilateral pelvis. IMPRESSION: There is no acute displaced fracture in the pelvis.
[2023-11-07] MEDS: TOPICAL SKIN ADHESIVE 1 EACH AMP TOPICAL ONE (01:17)
[2023-11-07 01:44] VITALS: BP 132/82; PULSE 84; RESP 18
== END 2023-11-07 01:44 | disposition home or self-care (01) ==
LOC: EC 11-07 01:37
DX: S01.112A Laceration without foreign body of left eyelid and periocular area, initial encounter (principal); S09.90XA Unspecified injury of head, initial encounter; Z87.891 Personal history of nicotine dependence; W22.03XA Walked into furniture, initial encounter
CPT/HCPCS: 12011; 70450; 72125; 72170; 99284